=== PATIENT | male | born 1995 | race Caucasian/White ===

== ENCOUNTER 2024-01-12 12:46 | Emergency (ER) | payer OTHER ==
[2024-01-12 12:55] VITALS: BP 131/80; PULSE 76; RESP 18; TEMP 97.9; BMI 17.3
== END 2024-01-12 14:33 | disposition home or self-care (01) ==
LOC: JER 12:46
DX: K92.1 Melena (principal); K59.00 Constipation, unspecified; K64.9 Unspecified hemorrhoids
CPT/HCPCS: 99283-25